=== PATIENT | female | born 1945 | race Caucasian/White ===

== ENCOUNTER 2020-07-29 06:58 | Day surgery (SDC) | payer MEDICARE ==
[2020-07-26 13:45] LABS: BASOPHILS # (AUTO) 0.04 x10^3/uL (0-0.1); BASOPHILS % (AUTO) 1 % (0-1); EOSINOPHILS % (AUTO) 2 % (1-7); LYMPHOCYTES # (AUTO) 1.21 x10^3/uL (1-3.4); LYMPHOCYTES % (AUTO) 26 % (22-44); MD NO; MEAN CORPUSCULAR HEMOGLOBIN 32.3 pg (27.0-34.8); MEAN CORPUSCULAR HGB CONC 33.2 g/dL (32.4-35.8); MEAN PLATELET VOLUME 7.5 fL (7.4-10.4); MONOCYTES # (AUTO) 0.81 x10^3/uL (0.2-0.8); MONOCYTES % (AUTO) 18 % (2-9); NEUTROPHILS # (AUTO) 2.45 x10^3/uL (1.8-6.8); NEUTROPHILS % (AUTO) 53 % (42-75); PLATELET COUNT 231 x10^3/uL (130-400); RED BLOOD COUNT 4.43 x10^6/uL (3.82-5.3); RED CELL DISTRIBUTION WIDTH 12.7 % (9.6-15.2)
[2020-07-26 13:48] LABS: MICROSCOPIC INDICATED
[2020-07-26 13:57] LABS: ALANINE AMINOTRANSFERASE 29 U/L (12-78); ALBUMIN 3.3 g/dL (3.4-5.0); ANION GAP 4 mmol/L (5-15); CALCIUM 8.9 mg/dL (8.5-10.1); CHLORIDE 109 mmol/L (98-107); CREATININE 0.94 mg/dL (0.55-1.02)
[2020-07-26 13:59] LABS: ALKALINE PHOSPHATASE 60 U/L (45-117); BILIRUBIN,TOTAL 0.4 mg/dL (0.2-1.0); TOTAL PROTEIN 7.3 g/dL (6.4-8.2)
[2020-07-26 14:34] LABS: INTERNATIONAL NORMALIZED RATIO 0.98 (0.93-1.1); PROTHROMBIN TIME 10.1 Seconds (9.6-11.5)
[~2020-07-29] VITALS: Ht 157.5 cm; Wt 67.0 kg
[~2020-07-29 06:58] MED LIST: GABA300C PO; ROSU5TAB PO; TRAZ150T62 PO; Thyroid PO
[2020-07-29] MEDS ORDERED: LACTATED RINGERS 1,000 ML IV SCH (07:13)
[2020-07-29] MEDS ORDERED: CHLORHEXIDINE 15 ML UDC MM STA (07:14)
[2020-07-29 07:30] VITALS: BP 144/74
[2020-07-29] MEDS ORDERED: FENTANYL PF 250 MCG/5ML ONE (08:25)
[2020-07-29] MEDS ORDERED: BUPIVACAINE/PF 0.5% ONE (08:44)
[2020-07-29] MEDS ORDERED: BUPIVACAINE/PF 0.25% ONE (08:44)
[2020-07-29] MEDS ORDERED: THROMBIN 5,000 UNIT VIAL TP ONE (08:44)
[2020-07-29] MEDS ORDERED: VANCOMYCIN 1,000 MG ONE (08:45)
[2020-07-29] MEDS ORDERED: EPINEPHRINE 1 MG/ML, 1ML ONE (08:45)
[2020-07-29] MEDS ORDERED: LIDOCAINE/PF 0.5% ,50ML ONE (09:24)
[2020-07-29] MEDS ORDERED: ONDANSETRON 2MG/ML, 2ML IVPush PRN (10:30)
[2020-07-29] MEDS ORDERED: METHOCARBAMOL 1,000 MG in DEXTROSE 5% 100 ML IV PRN (10:30)
[2020-07-29] MEDS ORDERED: OXYcodone 5 MG/5 ML ORAL.SOL UDC PO PRN (10:30)
[2020-07-29] MEDS ORDERED: ACETAMINOPHEN 325 MG TABLET PO PRN (10:30)
[2020-07-29] MEDS ORDERED: PROMETHAZINE 25 MG/ML, 1ML IVPush PRN (10:30)
[2020-07-29] MEDS ORDERED: PROMETHAZINE 25 MG SUPP PR PRN (10:30)
[2020-07-29] MEDS ORDERED: DEXAMETHASONE 4 MG/ML, 1ML ONE (10:40)
[2020-07-29] MEDS ORDERED: CEFAZOLIN 1,000 MG ONE (10:40)
[2020-07-29] MEDS ORDERED: NEOSTIGMINE 1 MG/ML, 10ML ONE (10:40)
[2020-07-29] MEDS ORDERED: ONDANSETRON 2MG/ML, 2ML ONE (10:40)
[2020-07-29] MEDS ORDERED: ROCURONIUM 10 MG/ML,10ML ONE (10:40)
[2020-07-29] MEDS ORDERED: SUCCINYLCHOLINE 20 MG/ML, 10ML ONE (10:40)
[2020-07-29] MEDS ORDERED: GLYCOPYRROLATE 0.2MG/1ML, 5ML ONE (10:40)
[2020-07-29] MEDS ORDERED: PROPOFOL 10 MG/ML, 20ML ONE (10:40)
[2020-07-29] MEDS ORDERED: OXYcodone 5 MG/5 ML ORAL.SOL UDC ONE (11:49)
[2020-07-29] MEDS ORDERED: FENTANYL PF 100 MCG/2ML ONE (11:53)
[2020-07-29] MEDS: FENTANYL PF 100 MCG/2ML IV PRN ×3 (11:55→12:06)
[2020-07-29] MEDS ORDERED: HYDROmorphone 1 MG/ML, 1ML INJ ONE (12:02)
[2020-07-29] MEDS: HYDROmorphone 1 MG/ML, 1ML INJ IVPush PRN ×2 (12:10→12:20)
[2020-07-29] MEDS ORDERED: HYDROcodone/APAP 5/325 TABLET ONE (13:50)
[2020-07-29] MEDS ORDERED: HYDROcodone/APAP 10/325 MG TABLET PO PRN (14:00)
[2020-07-29] MEDS ORDERED: morphine SULFATE/PF 0.5 MG/ML, 10ML IV PRN (14:00)
== END 2020-07-29 17:05 | disposition home or self-care (01) ==
LOC: OUT 06:58
PROVIDERS: ATTEND Orthopaedic Surgery Orthopaedic Surgery of the Spine
DX: M51.26 Other intervertebral disc displacement, lumbar region (principal); M48.061 Spinal stenosis, lumbar region without neurogenic claudication; Z20.828 Contact with and (suspected) exposure to other viral communicable diseases; Z79.899 Other long term (current) drug therapy; Z79.2 Long term (current) use of antibiotics
CPT/HCPCS: 36415; 63030; 63047; 71046; 72100; 80053; 81001; 85025; 85610; 85730; 87086; 87635; 93005; J0171; J0330; J0690; J1100; J1170; J2001; J2405; J2704; J2710; J3010; J3370; J3490; J7120

== ENCOUNTER 2020-08-01 08:44 | Observation (INO) | payer MEDICARE ==
[~2020-08-01] VITALS: Ht 157.5 cm; Wt 67.0 kg
--- NOTE | 2020-08-01 08:48 | NUR ---
PT BIBA C/O ALOC PER FRIEND/CAREGIVER. PT HAS NOT TAKEN HER PRESCRIBED NORCO SINCE YESTERDAY AT 5AM. FRIEND STATES SHE WAS LETHARGIC AND "NOT HERSELF" WHEN SHE WENT TO CHECK ON HER YESTERDAY. PT STATES IT HAS BEEN TAKING HER MUCH LONGER TO URINATE. A&OX4 ON ARRIVAL. FRIEND ARRIVED A FEW MINUTES AFTER PT ARRIVAL. DRESSING TO SURGICAL SITE CD&I. NO EYTHEMA OR DRAINAGE AT SITE.
[2020-08-01] MEDS ORDERED: ONDANSETRON 2MG/ML, 2ML IVPush ONE (09:00)
[2020-08-01] MEDS ORDERED: MORPHINE SULFATE 4 MG/ML, 1ML IVPush PRN (09:00)
[2020-08-01] MEDS ORDERED: ACETAMINOPHEN 325 MG TABLET PO ONE (09:00)
[2020-08-01] MEDS ORDERED: ACETAMINOPHEN 325 MG TABLET ONE (09:07)
[2020-08-01] MEDS ORDERED: ONDANSETRON 2MG/ML, 2ML ONE (09:08)
[2020-08-01] MEDS ORDERED: MORPHINE SULFATE 4 MG/ML, 1ML ONE (09:08)
[2020-08-01 09:43] LABS: MEAN CORPUSCULAR HEMOGLOBIN 31.5 pg (27.0-34.8); MEAN CORPUSCULAR HGB CONC 32.2 g/dL (32.4-35.8); MEAN PLATELET VOLUME 7.4 fL (7.4-10.4); PLATELET COUNT 293 x10^3/uL (130-400); RED BLOOD COUNT 4.31 x10^6/uL (3.82-5.3); RED CELL DISTRIBUTION WIDTH 12.4 % (9.6-15.2)
[2020-08-01 09:52] LABS: ALANINE AMINOTRANSFERASE 22 U/L (12-78); ALBUMIN 3.2 g/dL (3.4-5.0); ANION GAP 6 mmol/L (5-15); CALCIUM 8.8 mg/dL (8.5-10.1); CHLORIDE 101 mmol/L (98-107)
[2020-08-01 09:54] LABS: ALKALINE PHOSPHATASE 56 U/L (45-117); BILIRUBIN,TOTAL 0.6 mg/dL (0.2-1.0); CREATININE 0.84 mg/dL (0.55-1.02); TOTAL PROTEIN 7.3 g/dL (6.4-8.2)
[2020-08-01 10:01] LABS: BASOPHILS # (AUTO) 0.02 x10^3/uL (0-0.1); BASOPHILS % (AUTO) 0 % (0-1); EOSINOPHILS # (AUTO) 0.03 x10^3/uL (0-0.4); EOSINOPHILS % (AUTO) 0 % (1-7); LYMPHOCYTES # (AUTO) 1.67 x10^3/uL (1-3.4); LYMPHOCYTES % (AUTO) 17 % (22-44); MD SCAN; MONOCYTES # (AUTO) 1.46 x10^3/uL (0.2-0.8); MONOCYTES % (AUTO) 15 % (2-9); NEUTROPHILS # (AUTO) 6.72 x10^3/uL (1.8-6.8); NEUTROPHILS % (AUTO) 68 % (42-75)
[2020-08-01 10:02] LABS: MICROSCOPIC NOT IND
--- NOTE | 2020-08-01 10:02 | NUR ---
PT LAYING ON GURNEY, NAD WHILE AT REST. FRIEND AT BEDSIDE. REPORTS DECREASED PAIN AFTER MEDICATION GIVEN. PT RESPONDS APPROPRIATELY TO STAFF. CALL LIGHT WITHIN REACH, FALL PRECAUTIONS IN PLACE. NO ADDITIONAL NEEDS AT THIS TIME.
--- NOTE | 2020-08-01 11:04 | NUR ---
ERP AT BEDSIDE DISCUSSING ADMISSION PLAN. PT IN NAD, VSS. REPOSITIONED PT FOR COMFORT. PT REPORTS NO PAIN WHILE AT REST. CALL LIGHT WITHIN REACH, WILL CONTINUE TO MONITOR.
[2020-08-01 11:10] LABS: HCT (SEDRATE) 37.7 % (34.6-47.8)
[2020-08-01] MEDS ORDERED: HYDR-3240 PO (11:13)
--- NOTE | 2020-08-01 11:15 | NUR ---
PT DOES NOT MEET SEPSIS CRITERIA PER DR. LAW DE LUNA.
[2020-08-01] MEDS ORDERED: HYDR-3246 PO (11:20)
[2020-08-01] MEDS ORDERED: CEPH-367 PO (11:22)
[2020-08-01] MEDS ORDERED: ONDA4TAB7 PO (11:22)
--- NOTE | 2020-08-01 12:01 | NUR ---
PT SITTING UPRIGHT ON GURNEY, COMFORTABLY. PT PROVIDED CRACKERS AND JUICE, OK PER . NAD, VSS. NO ADDITIONAL NEEDS AT THIS TIME. CALL LIGHT WITHIN REACH, FALL PRECAUTIONS IN PLACE.
--- NOTE | 2020-08-01 12:25 | NUR ---
TASK RN NOTE: PT SITTING UP IN BED, TALKING WITH FAMILY MEMBER AT BEDSIDE. NAD NOTED AT THIS TIME.
--- NOTE | 2020-08-01 12:32 | NUR ---
TASK RN NOTE: PT PLACED ON BEDPAN.
[2020-08-01] MEDS ORDERED: ENALAPRILAT 1.25 MG/ML, 2ML IVPush PRN (14:00)
[2020-08-01] MEDS ORDERED: OXYcodone IR 5MG TABLET PO PRN (14:00)
[2020-08-01] MEDS ORDERED: ONDANSETRON 2MG/ML, 2ML IVPush PRN (14:00)
[2020-08-01] MEDS ORDERED: ENOXAPARIN 40 MG/0.4 ML SQ SCH (14:00)
[2020-08-01] MEDS: GABAPENTIN 100 MG CAPSULE PO SCH ×2 (16:08→20:26)
[2020-08-01] MEDS: ACETAMINOPHEN 325 MG TABLET PO SCH ×2 (16:09→20:26)
[2020-08-01 20:00] VITALS: BP 131/84
[2020-08-02 03:47] VITALS: BP 132/69
[2020-08-02 06:02] LABS: ANION GAP 5 mmol/L (5-15); CALCIUM 8.9 mg/dL (8.5-10.1); CHLORIDE 103 mmol/L (98-107); CREATININE 0.74 mg/dL (0.55-1.02)
[2020-08-02 06:30] LABS: MEAN CORPUSCULAR HEMOGLOBIN 32.2 pg (27.0-34.8); MEAN CORPUSCULAR HGB CONC 32.6 g/dL (32.4-35.8); MEAN PLATELET VOLUME 7.5 fL (7.4-10.4); PLATELET COUNT 304 x10^3/uL (130-400); RED BLOOD COUNT 4.18 x10^6/uL (3.82-5.3); RED CELL DISTRIBUTION WIDTH 12.4 % (9.6-15.2)
[2020-08-02 06:51] VITALS: BP 122/67
[2020-08-02 06:59] LABS: BASOPHILS # (AUTO) 0.04 x10^3/uL (0-0.1); BASOPHILS % (AUTO) 1 % (0-1); EOSINOPHILS # (AUTO) 0.09 x10^3/uL (0-0.4); EOSINOPHILS % (AUTO) 1 % (1-7); LYMPHOCYTES # (AUTO) 1.63 x10^3/uL (1-3.4); LYMPHOCYTES % (AUTO) 23 % (22-44); MD SCAN; MONOCYTES # (AUTO) 1.18 x10^3/uL (0.2-0.8); MONOCYTES % (AUTO) 16 % (2-9); NEUTROPHILS # (AUTO) 4.24 x10^3/uL (1.8-6.8); NEUTROPHILS % (AUTO) 59 % (42-75)
[2020-08-02] MEDS: GABAPENTIN 100 MG CAPSULE PO SCH (08:59)
[2020-08-02] MEDS ORDERED: SENNA/DOCUSATE TABLET PO SCH (09:00)
[2020-08-02] MEDS: ACETAMINOPHEN 325 MG TABLET PO SCH (09:00)
[2020-08-02] MEDS ORDERED: ACET325T26 PO (12:17)
[2020-08-02] MEDS ORDERED: OXYC5TAB3 PO (12:17)
[2020-08-02] MEDS ORDERED: Senna/Docusate PO (12:17)
[2020-08-02] MEDS ORDERED: GABA-826 PO (12:17)
[2020-08-02 12:31] VITALS: BP 108/61
== END 2020-08-02 15:08 | disposition home or self-care (01) ==
LOC: ED 09:27 → INTOOBSV 11:05 → EDIP 11:05 → 3N 12:55 → DCLOUNGE 08-02 14:57
PROVIDERS: ADMIT Internal Medicine; ATTEND Hospitalist
DX: G92 Toxic encephalopathy (principal); R50.82 Postprocedural fever; E78.00 Pure hypercholesterolemia, unspecified; E03.9 Hypothyroidism, unspecified; T50.995A Adverse effect of other drugs, medicaments and biological substances, initial encounter; Z98.1 Arthrodesis status; Z79.899 Other long term (current) drug therapy
CPT/HCPCS: 36415; 71045; 80048; 80053; 81003; 83605; 84145; 85025; 85651; 86140; 87040; 93005; 93970; 96372; 96374; 96375; 99285; G0378; J1650; J2270; J2405